=== PATIENT | male | born 1965 | race Caucasian/White ===

== ENCOUNTER 2024-01-04 23:30 | Emergency (ER) | payer OTHER, SELFPAY ==
[2024-01-05 00:03] VITALS: BP 154/92; PULSE 72; RESP 18; TEMP 36.4; O2SAT 95; BMI 33.0
[2024-01-05] MEDS: ONDANSETRON 4 MG/2 ML INJ IV (00:17)
[2024-01-05 00:24] LABS: Add Manual Diff / Slide Review NO; Basophils Absolute Auto 100 /uL (0-100); Basophils Percent Auto 0.9 % (0-2); Eosinophils Absolute Auto 200 /uL (0-450); Eosinophils Percent Auto 2.6 % (2-4); Hematocrit 48.6 % (41-53); Hemoglobin 17.1 g/dL (13.5-17.5); Lymphocytes Absolute Auto 3300 /uL (1100-4500); Lymphocytes Percent Auto 42.5 % (25-40); Mean Corpuscular HGB Conc 35.1 % (30-36); Mean Corpuscular Hemoglobin 32.1 PG (26-34); Mean Corpuscular Volume 91.3 fL (80-100); Monocytes Absolute Auto 600 /uL (0-900); Monocytes Percent Auto 8.2 % (3-14); Neutrophils Absolute Auto 3500 /uL (1500-7000); Neutrophils Percent Auto 45.8 % (50-75); Platelet Count 233 X10^3/uL (150-400); Red Blood Cell Count 5.32 X10^6/uL (4.5-5.9); Red Cell Distribution Width 12.9 % (11.6-14.8); White Blood Cell Count 7.7 X10^3/uL (4.5-11.0)
[2024-01-05 00:34] LABS: Alanine Aminotransferase 28 IU/L (<50); Albumin 4.5 g/dL (3.5-5.0); Albumin Globulin Ratio 1.7 (1.0-2.8); Alkaline Phosphatase 56 U/L (38-126); Aspartate Aminotransferase 25 IU/L (17-59); BUN Creatinine Ratio 20.6 (6-22); Bilirubin Total 0.6 mg/dL (0.2-1.3); Blood Urea Nitrogen 21 mg/dL (9-20); Calcium 9.3 mg/dL (8.4-10.2); Carbon Dioxide 24 mmol/L (22-32); Chloride 104 mmol/L (98-107); Estimated Glomerular Filt Rate > 60 mL/min (>60); Globulin 2.7 g/dL (1.7-4.1); Glucose 191 mg/dL (80-110); HEMOLYSIS 29 (0-50); Lipase 128 U/L (23-300); Potassium 4.2 mmol/L (3.4-5.1); Sodium 137 mmol/L (137-145); Total Protein 7.2 g/dL (6.3-8.2)
[2024-01-05 01:03] LABS: Bacteria Urine None Seen; Culture Indicated Urine Cult Not Indicated; RBC Urine 0-1/HPF (0-5/HPF); Squamous Epithelial Cell Urine 0-1 /HPF (0-5/HPF); Urine Volume Low Vol <1mL unspun; WBC Urine None Seen (0-5/HPF)
--- NOTE | 2024-01-05 01:57 | DI.CT.S_ITS ---
PROCEDURE: CT ABDOMEN PELVIS WO CON INDICATIONS: back pain, hx stones TECHNIQUE: Axial sections were acquired from the lung bases to the pubic symphysis. Coronal and sagittal reformats were performed. For radiation dose reduction, the following was used: automated exposure control, adjustment of mA and/or kV according to patient size. COMPARISON: None. FINDINGS: Lower thorax: The lung bases are clear. Heart size normal. No hiatal hernia. Liver: Normal in size and attenuation. No contour deformity present. Biliary system: No calcified cholelithiasis or pericholecystic inflammation. No intra or extrahepatic bile duct dilatation. Pancreas: Unremarkable without mass or inflammation evident. Spleen: Normal in size and density. Adrenals: Normal morphology and density. Reproductive system: Unremarkable as visualized. Urinary system: Moderate left hydronephrosis and hydroureter associated with a 3 mm distal left ureteral calculus. Additional nonobstructing 2 mm calculus in the left renal collecting system. 5.3 cm right renal cortical simple cyst. Gastrointestinal system: The bowel is unremarkable without evidence of bowel obstruction or inflammation. The stomach appears unremarkable. Multiple diverticula arise from the sigmoid colon without evidence of diverticulitis. Appendix: Normal appendix identified. No evidence of appendicitis. Peritoneal spaces: No mesenteric or retroperitoneal adenopathy. No free air. No free fluid. Vasculature: The IVC, aorta and iliac vasculature are unremarkable. Abdominal wall: Bilateral inguinal hernia(s) contain fat without bowel involvement. Musculoskeletal: Normal bone mineralization. Degenerative disc disease and arthropathy noted in lower lumbar spine. No acute fractures. IMPRESSION: Moderate left obstructive uropathy resulting from distal 3 mm ureteral calculus Approved by: Feliberto Garcia M.D. on 01/05/2024 at 8:40
--- NOTE | 2024-01-05 01:58 | ED_ITS ---
HPI - Abdominal Pain General Chief Complaint: Urogenital-Male Stated Complaint: kidney stones Time Seen by Provider: 01/05/24 01:57 Source: patient Mode of arrival: Ambulatory History of Present Illness HPI narrative: 58-year-old male with history of prior single kidney stone event on the right side, complains of acute onset atraumatic left flank pain and left lower back pain, acute onset 10:45 p.m. last night while visiting staying at the [facility]. No recent lifting trauma new activities. No numbness or tingling to his legs. Feels somewhat similar to his right-sided kidney stone, opposite side, somewhat different in quality. No history of aortic or vascular problems known. No previous back surgeries or interventions in lower spine Related Data Home Medications Medication Instructions Recorded Confirmed atorvastatin 20 mg tablet 20 mg PO DAILY 01/05/24 01/05/24 losartan 50 mg tablet 50 mg PO DAILY 01/05/24 01/05/24 metformin 500 mg tablet 500 mg PO DAILY 01/05/24 01/05/24 Previous Rx's Medication Instructions Recorded tamsulosin 0.4 mg capsule 0.4 mg PO DAILY #14 caps 01/05/24 Allergies Allergy/AdvReac Type Severity Reaction Status Date / Time Penicillins Allergy Unknown Verified 01/05/24 00:00 Review of Systems Review of Systems Narrative: see HPI Patient History Social History Smoking Status: Never smoker Smoking Status: Never smoker alcohol intake frequency: holidays/special occasions only Substance Use Type: does not use Exam Narrative Exam Narrative: GENERAL: Well-developed patient, in mild distress. HEAD: Atraumatic. Normocephalic. EYES: Pupils equal round and reactive. Extraocular motions intact. No scleral icterus. No injection or drainage. ENT: Nose without bleeding, purulent drainage. Throat without erythema, tonsillar hypertrophy or exudate. Airway patent. NECK: Trachea midline. Non tender CARDIOVASCULAR: Regular rate and rhythm without murmurs, gallops, or rubs. RESPIRATORY: Clear to auscultation. Breath sounds equal bilaterally. No wheezes, rales, or rhonchi. GASTROINTESTINAL: Abdomen soft, non-tender, nondistended. EXTREMITIES: No edema or joint tenderness. BACK: Nontender without deformity or crepitance. No flank tenderness. NEURO: AOx3. Motor functions grossly nonfocal SKIN: No rash or erythema of visible areas Initial Vital Signs Initial Vital Signs: Vital Signs Temperature 97.6 F 01/05/24 00:03 Pulse Rate 72 01/05/24 00:03 Respiratory Rate 18 01/05/24 00:03 Blood Pressure 154/92 H 01/05/24 00:03 Pulse Oximetry 95 01/05/24 00:03 Oxygen Delivery Method Room Air 01/05/24 00:03 Course Orders Ordered: ED Orders 01/05/24 00:08 EKG-12 Lead Stat 01/05/24 00:13 Complete Blood Count AUTO DIFF Stat Comprehensive Metabolic Panel Stat Lipase Stat 01/05/24 00:24 Urine Microscopic Stat 01/05/24 01:57 CT abdomen pelvis wo con Stat Discontinued Medications Hydrocodone Bitart/Acetaminophen (Hydrocodone/Acet 5/325 Prepack) 1 bottle MISC DIRECTED ONE Stop: 01/05/24 03:39 Last Admin: 01/05/24 03:54 Dose: 1 bottle Documented By: Hydromorphone HCl (Hydromorphone 1 Mg Inj) 0.5 mg IV NOW ONE Stop: 01/05/24 01:59 Last Admin: 01/05/24 02:09 Dose: 0.5 mg Documented By: Ketorolac Tromethamine (Ketorolac 30 Mg/Ml Vial) 15 mg IV NOW ONE Stop: 01/05/24 02:36 Last Admin: 01/05/24 02:42 Dose: 15 mg Documented By: Ondansetron HCl (Ondansetron 4 Mg/2 Ml Inj) 4 mg IV NOW PRN PRN Reason: Nausea And Vomiting Last Admin: 01/05/24 00:17 Dose: 4 mg Documented By: Ondansetron HCl (Ondansetron 4 Mg Odt) 4 mg PO NOW PRN PRN Reason: Nausea And Vomiting Ondansetron HCl (Ondansetron 4 Mg Odt Prepack) 1 bottle MISC DIRECTED ONE Stop: 01/05/24 03:52 Last Admin: 01/05/24 03:54 Dose: 1 bottle Documented By: Vital Signs Vital signs: Vital Signs - 8 hr 01/05/24 00:03 01/05/24 02:45 01/05/24 02:45 Temperature 97.6 F Pulse Rate 72 77 Respiratory Rate 18 Blood Pressure 154/92 H 139/88 Pulse Oximetry 95 96 Oxygen Delivery Method Room Air 01/05/24 03:00 01/05/24 03:00 01/05/24 03:30 Temperature Pulse Rate 78 71 Respiratory Rate Blood Pressure 127/79 Pulse Oximetry 94 93 Oxygen Delivery Method Room Air 01/05/24 03:30 01/05/24 03:58 Temperature 97.8 F Pulse Rate 85 Respiratory Rate 18 Blood Pressure 128/79 134/78 Pulse Oximetry 98 Oxygen Delivery Method Room Air MDM - Abdominal Pain Lab Data Attestation: I reviewed the patient's lab results. Lab results narrative: White blood cell count 7700 normal, hemoglobin 17, platelets adequate, BMP unremarkable, LFTs normal, lipase normal. Urinalysis negative 01/05/24 00:13 01/05/24 00:13 Labs: Lab Results 01/05/24 01/05/24 Range/Units 00:13 00:24 WBC 7.7 (4.5-11.0) X10^3/uL RBC 5.32 (4.5-5.9) X10^6/uL Hgb 17.1 (13.5-17.5) g/dL Hct 48.6 (41-53) % MCV 91.3 (80-100) fL MCH 32.1 (26-34) PG MCHC 35.1 (30-36) % RDW 12.9 (11.6-14.8) % Plt Count 233 (150-400) X10^3/uL Neut % (Auto) 45.8 L (50-75) % Lymph % (Auto) 42.5 H (25-40) % [place] % (Auto) 8.2 (3-14) % Eos % (Auto) 2.6 (2-4) % Baso % (Auto) 0.9 (0-2) % Neut # (Auto) 3500 (4516-6362) /uL Lymph # (Auto) 3300 (8947-8460) /uL [place] # (Auto) 600 (0-900) /uL Eos # (Auto) 200 (0-450) /uL Baso # (Auto) 100 (0-100) /uL Sodium 137 (137-145) mmol/L Potassium 4.2 (3.4-5.1) mmol/L Chloride 104 (98-107) mmol/L Carbon Dioxide 24 (22-32) mmol/L BUN 21 H (9-20) mg/dL Creatinine 1.02 (0.66-1.25) mg/dL Estimated GFR > 60 (>60) mL/min BUN/Creatinine Ratio 20.6 (6-22) Glucose 191 H (80-110) mg/dL Calcium 9.3 (8.4-10.2) mg/dL Total Bilirubin 0.6 (0.2-1.3) mg/dL AST 25 (17-59) IU/L ALT 28 (<50) IU/L Alkaline Phosphatase 56 (38-126) U/L Total Protein 7.2 (6.3-8.2) g/dL Albumin 4.5 (3.5-5.0) g/dL Globulin 2.7 (1.7-4.1) g/dL Albumin/Globulin Ratio 1.7 (1.0-2.8) Lipase 128 (23-300) U/L Urine RBC 0-1/hpf (0-5/HPF) Urine WBC None seen (0-5/HPF) Ur Squamous Epith Cells 0-1 /hpf (0-5/HPF) Urine Bacteria None seen (None) Ur Culture Indicated? Cult not indicated Vol Urine Centrifuged Low vol <1ml unspun A Point of care testing: Urine Dip Bedside Urine Glucose Negative Bedside Urine Bilirubin - Negative Bedside Urine Ketone +/- 5 Urine Specific [place] 1.030 Bedside Urine Occult Blood + Bedside Urine pH 5.0 Bedside Urine Protein +/- 15 Bedside Urine Urobilinogen - Negative Bedside Urine Nitrite - Negative Bedside Urine Leukocytes +/- 15 Esterase MDM Narrative Medical decision making narrative: 58-year-old male with previous right-sided kidney stone, has left flank low back pain without trauma, afebrile, sirs screen negative. Unresponsive to self administered ibuprofen earlier today. With multiple episodes nausea and vomiting. IV Dilaudid, Zofran, Toradol. Screening labs unremarkable. CT abdomen and pelvis imaging had been requested. Symptoms improved. CT results pending. CT abdomen and pelvis noncontrast. Impressions: ?Moderate left hydroureteronephrosis and perinephric/periureteral inflammatory changes with an obstructing 3 mm distal ureteral calculus.? See tele radiology report PO tamsulosin dose now, prescription for discharge. Oral pain medications for discharge, over-counter NSAIDs for discharge. Home pack analgesic Hydrocodone/APAP to take if needed. Homepack ODT-Shukrian. Follow up with local urologist in [facility] area. Return precautions discussed Discharge Plan Departure Patient Disposition: Home Clinical Impression: Acute left-sided back pain, Calculus of distal left ureter Instructions: DI for Kidney Stones Activity Restrictions/Additional Instructions: Left-sided flank pain without trauma, no fever, vital signs unremarkable, no tenderness on flank palpation. Urinalysis without obvious infection. Screening labs unremarkable. CT abdomen and pelvis imaging showed presence of a 3 mm stone in the distal ureter on the left symptomatic side. This seems to be obstructing, however it is fairly small and pretty far down close to the bladder, hopefully this will pass without urological interventions. Consider taking naproxen anti-inflammatory medication twice daily [id number]. Home pack of hydrocodone/acetaminophen to use if needed. Consider tamsulosin to help expel the stone, if it does not affect her blood pressure and make you feel dizzy. Drink plenty of fluids. Follow up with the Urology or your regular doctor in your [place] area. Return to this/nearest emergency department for any change worsening symptoms or any concerns prior Prescriptions: New tamsulosin 0.4 mg capsule 0.4 mg PO DAILY Qty: 14 0RF No Action metformin 500 mg Tablet 500 mg PO DAILY atorvastatin 20 mg tablet 20 mg PO DAILY losartan 50 mg tablet 50 mg PO DAILY Stand Alone Forms: Patient Portal/API
[2024-01-05] MEDS: HYDROMORPHONE 1 MG INJ 0.5 MG IV (02:09)
[2024-01-05] MEDS: KETOROLAC 30 MG/ML VIAL 15 MG IV (02:42)
[2024-01-05 02:45] VITALS: BP 139/88; PULSE 77; O2SAT 96
[2024-01-05 03:00] VITALS: BP 127/79; PULSE 78; O2SAT 94
[2024-01-05 03:30] VITALS: BP 128/79; PULSE 71; O2SAT 93
[2024-01-05] MEDS: ONDANSETRON 4 MG ODT PREPACK 1 BOTTLE MISC (03:54)
[2024-01-05] MEDS: HYDROCODONE/ACET 5/325 PREPACK 1 BOTTLE MISC (03:54)
[2024-01-05 03:58] VITALS: BP 134/78; PULSE 85; RESP 18; TEMP 36.6; O2SAT 98
== END 2024-01-05 03:59 | disposition home or self-care (01) ==
PROVIDERS: Emergency Provider Emergency Medicine
DX: N20.1 Calculus of ureter (principal); M54.50 Low back pain, unspecified; Z87.442 Personal history of urinary calculi
CPT/HCPCS: 36415; 74176; 80053; 81003; 81015; 83690; 85025; 96374; 96375; 99284; J1171; J1885; J2405